=== PATIENT | male | born 1950 ===

== ENCOUNTER 2024-05-08 09:50 | Observation (INO) ==
--- NOTE | 2024-05-08 10:28 | ED Physician Documentation ---
History of Present Illness Stated complaint Stated Complaint: GLF, VOMIT, PX Chief complaint Chief Complaint: Trauma Hd/Nk History obtained from History obtained from: Patient and Family History of Present Illness Pain level max: 6 Pain level now: 4 Additonal information Additional information: Patient is a 73-year-old male who presents to the emergency department after a fall at home last night. He states that he fell down carpeted stairs onto hardwood. States left-sided rib pain, left-sided abdominal pain and left-sided head pain today. Has had nausea but no vomiting. Not on blood thinners. No altered mental status. Worse with movement, better with lying still. No hematuria noted. States that he has had fractured ribs in the past and this feels similar. No loss of consciousness. Not on anticoagulants. No seizure activity. No neck or back pain. No focal neurological deficits. Review of Systems Constitutional Denies: Fever or Chills Cardiovascular Denies: chest pain Gastrointestinal Denies: Coffee grounds in vomit, Melena or Blood in stool Meds/Allgy Home Medications Ambulatory Orders Medication Instructions Recorded Confirmed acyclovir 800 mg tablet 800 mg PO BID 05/08/24 05/08/24 amlodipine 10 mg tablet 10 mg PO ONCE 05/08/24 05/08/24 atorvastatin 40 mg tablet 40 mg PO ONCE 05/08/24 05/08/24 bupropion HCl 200 mg tablet,12 hr 200 mg PO BID 05/08/24 05/08/24 sustained-release irbesartan 300 mg tablet 300 mg PO ONCE 05/08/24 05/08/24 mirtazapine 45 mg tablet 45 mg PO HS 05/08/24 05/08/24 omeprazole 20 mg capsule,delayed 20 mg PO DAILY 05/08/24 05/08/24 release triamterene 37.5 1 tab PO ONCE 05/08/24 05/08/24 mg-hydrochlorothiazide 25 mg tablet Allergies Allergies Allergy/AdvReac Type Severity Reaction Status Date / Time No Known Drug Allergies Allergy Verified 05/08/24 10:06 [facility] Active Problems All Active Problems (Updated 05/08/24 @ 19:15 by Pina Monroe DO) Laceration of scalp without complication (Acute) Fall (on) (from) other stairs and steps, initial encounter (Acute) Hematoma of iliopsoas muscle (Acute) Closed rib fracture (Acute) Medical History Medical History (Updated 05/08/24 @ 19:15 by Pina Monroe DO) Hearing loss hearing aids [place]stroms macroglobulinemia s/p chemo Aortic stenosis High cholesterol Hypertension Surgical History Surgical History (Updated 05/08/24 @ 16:58 by Pina Monroe DO) History of transcatheter aortic valve replacement (TAVR) (~2020) Social History Social History (Updated 05/08/24 @ 11:40 by Magali Mata RN) Smoking Status: Never smoker Second hand tobacco smoke exposure: No Do you dip or chew tobacco?: No Do you vape?: No Relationship: Level: Independent Do you feel safe in your home environment?: Yes Suffered physical, verbal, emotional, or financial abuse?: No Exam Constitutional normal general appearance and no apparent distress HENMT normocephalic and TMs normal bilaterally Mild left forehead hematoma. No palpable skull fractures. No facial bone tenderness. Otherwise, atraumatic exam of the scalp and face. Eyes PERRL and EOMs intact bilaterally Neck/C-Spine visual inspection normal, trachea midline, cervical spine nontender and cervical full ROM noted No tenderness to palpation or percussion. No step-off or deformity. Chest inspection of chest normal Tendinous palpation over the left lower lateral ribs approximately eight through 10. No crepitus. No ecchymosis. Otherwise, benign exam of the chest wall. Respiratory breath sounds equal bilaterally, normal respiratory effort and clear to auscultation bilaterally Cardiovascular normal heart rate noted and regular rhythm noted Gastrointestinal abdomen normal to inspection, abdomen soft to palpation, nontender to palpation, nontender to percussion and nondistended Genitourinary no CVA tenderness Back/Pelvis spine normal to inspection, no thoracic spine tenderness and no lumbar spine tenderness No tenderness to palpation or percussion. 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, no focal motor deficit noted, no sensory deficits noted and GCS 15 Psychiatry mental status grossly normal and oriented x3 Skin skin color normal Results Vitals Vitals: Vital Signs - 24 hr 05/08/24 10:01 05/08/24 10:25 05/08/24 10:50 Temperature 36.4 C L Temperature Source Temporal Artery Scan Pulse Rate 73 77 85 Respiratory Rate 20 26 H 30 H Blood Pressure 147/84 H O2 Saturation 100 100 98 O2 Source Room air Room air Room air Pain Intensity 9 9 05/08/24 10:54 05/08/24 11:00 05/08/24 12:00 Temperature Temperature Source Pulse Rate 83 90 89 Respiratory Rate 23 18 18 Blood Pressure 144/81 H 133/87 H 144/84 H O2 Saturation 98 97 95 O2 Source Room air Room air Room air Pain Intensity 4 0 Oxygen O2 Source Room air Labs Labs: Laboratory Tests 05/08/24 10:15 WBC 11.9 H RBC 3.94 L Hgb 13.4 L Hct 38.4 L MCV 97.5 H MCH 34.0 H MCHC 34.9 RDW 13.0 Plt Count 187 MPV 10.7 Neut # (Auto) 11.0 H Lymph # (Auto) 0.3 L Wake # (Auto) 0.5 Eos # (Auto) 0.0 Baso # (Auto) 0.1 Absolute Nucleated RBC 0.00 Nucleated RBC % 0.0 PT 12.4 INR 1.1 APTT 24.7 L Sodium 133 L Potassium 4.0 Chloride 101 Carbon Dioxide 23 Anion Gap 9.0 BUN 24 H Creatinine 1.2 Estimated GFR (MDRD) 59 L Glucose 196 H Calcium 9.5 Total Bilirubin 0.5 AST 56 H ALT 50 Alkaline Phosphatase 83 Total Protein 7.5 Albumin 4.2 Globulin 3.3 Albumin/Globulin Ratio 1.3 Lipase 50 Ethyl Alcohol < 10.0 PD Medical Decision Making ED course Complexity details: reviewed results, re-evaluated patient, considered differential, d/w patient and d/w family ED course: 73 year old male status post. A fall down the stairs last night at approximately 9PM. Has a hematoma to the left forehead as well as pain to the left ribs and left abdomen. No acute findings on head CT, cervical spine CT. His chest CT shows rib fractures of the lateral ribs nine and ten. No pneumothorax or hemothorax. CT abdomen and pelvis do not show any acute traumatic abnormalities other than a possible iliopsoas hematoma. His hemoglobin and hematocrit are normal here. Vital signs are stable, not on blood thinners. Pain well controlled with a dose of Dilaudid, not hypoxic. Discussed the case with Doctor. Monroe, will place the patient on observation for pain control, serial hemoglobin and hematocrit, and incentive spirometry. Discharge Plan Discharge Patient Disposition: ED Place in Observation Condition: Stable Clinical Impression: Closed rib fracture Qualifiers: Encounter type: initial encounter Rib fracture type: multiple ribs Laterality: left Qualified Code(s): S22.42XA - Multiple fractures of ribs, left side, initial encounter for closed fracture Hematoma of iliopsoas muscle Qualifiers: Encounter type: initial encounter Laterality: left Qualified Code(s): S70.12XA - Contusion of left thigh, initial encounter Interventions: ED Admission Assessment Last Done: 05/08/24 13:53
[2024-05-08] MEDS ORDERED: iohexoL-300 100 ML VIAL ONE (10:30)
[2024-05-08] MEDS: HYDROmorphone 1 MG/ML SYRINGE IVP STA (10:30)
[2024-05-08 10:33] LABS: BASOPHILS # (AUTO) 0.1 10^3/uL (0.0-0.1); BASOPHILS % (AUTO) 0.4 %; HCT - HEMATOCRIT 38.4 % (42.0-52.0); HGB - HEMOGLOBIN 13.4 g/dL (14.0-18.0); LYMPHOCYTES # (AUTO) 0.3 10^3/uL (1.5-3.5); LYMPHOCYTES % (AUTO) 2.4 %; MEAN CORPUSCULAR HGB CONC 34.9 g/dL (32.0-36.0); MEAN CORPUSCULAR VOLUME 97.5 fL (80.0-94.0); MEAN PLATELET VOLUME 10.7 fL (7.4-11.4); MONOCYTES # (AUTO) 0.5 10^3/uL (0.0-1.0); MONOCYTES % (AUTO) 4.1 %; NEUTROPHILS % (AUTO) 92.7 %; PLT - PLATELET COUNT 187 10^3/uL (130-450); RED BLOOD COUNT 3.94 10^6/uL (4.70-6.10); WHITE BLOOD COUNT 11.9 x10^3/uL (4.8-10.8)
[2024-05-08] MEDS: ONDANSETRON 4 MG/2 ML VIAL IVP STA (10:33)
[2024-05-08 10:44] LABS: ALBUMIN 4.2 g/dL (3.2-5.5); ALBUMIN/GLOBULIN RATIO 1.3 (1.0-2.2); ALKALINE PHOSPHATASE 83 IU/L (42-121); ALT ALANINE AMINOTRANSFERASE 50 IU/L (10-60); AST ASPARTATE AMINOTRANSFERASE 56 IU/L (10-42); BILIRUBIN,TOTAL 0.5 mg/dL (0.2-1.0); BUN - BLOOD UREA NITROGEN 24 mg/dL (6-20); CALCIUM 9.5 mg/dL (8.5-10.3); CARBON DIOXIDE - CO2 23 mmol/L (21-32); CHLORIDE 101 mmol/L (101-111); CREATININE 1.2 mg/dL (0.6-1.3); ETOH - ETHANOL < 10.0 mg/dL; GFR - MDRD 59 (>89); GLUCOSE 196 mg/dL (74-104); LIPASE 50 U/L (11-82); PARTIAL THROMBOPLASTIN TIME 24.7 secs (24.9-33.3); SODIUM 133 mmol/L (135-145); TOTAL PROTEIN 7.5 g/dL (6.4-8.9)
[2024-05-08 10:48] LABS: INR 1.1 (0.8-1.2); PT - PROTHROMBIN TIME 12.4 secs (9.9-12.6)
[2024-05-08] MEDS: iohexoL-300 100 ML VIAL IVP ONE (11:00)
--- NOTE | 2024-05-08 11:10 | CT Report ---
PROCEDURE: CT Head WO INDICATIONS: Head trauma, mod-severe TECHNIQUE: Noncontrast 4.5 mm thick angled axial sections acquired from the foramen magnum to the vertex. For r adiation dose reduction, the following was used: automated exposure control, adjustment of mA and/or kV according to patient size. COMPARISON: None. FINDINGS: Image quality: Excellent. CSF spaces: Basal cisterns are patent. No extra-axial fluid collections. Ventricles are normal in size and shape. Brain: No midline shift. No intracranial masses or hemorrhage. Rosales-white matter interface is norm al. Skull and face: Calvarium and visualized facial bones are intact, without suspicious lesions. Sinuses: Visualized sinuses and mastoids are clear. IMPRESSION: No acute intracranial pathology. Reviewed by: Kiko Welch MD on 05/08/2024 11:09 AM PDT Approved by: Kiko Welch MD on 05/08/2024 11:09 AM PDT Station ID: [id number]
--- NOTE | 2024-05-08 11:10 | CT Report ---
PROCEDURE: CT Abdomen/Pelvis W INDICATIONS: Abdominal trauma, blunt, L sided, fall CONTRAST: 100ml omni 300 TECHNIQUE: After the administration of intravenous contrast, a CT scan of the abdomen and pelvis was performed. Images were recorded and evaluated at appropriate window settings. Reformats: coronal and sagittal. F or radiation dose reduction, the following was used: automated exposure control, adjustment of mA and /or kV according to patient size. COMPARISON: None. FINDINGS: Image quality: Diagnostic. Lower chest: Unremarkable. Liver: No solid mass. Gallbladder: Cholelithiasis without wall thickening. Biliary tree: No intrahepatic or extrahepatic dilation, accounting for age. Spleen: No splenomegaly. Pancreas: No pancreatic ductal dilation. Adrenals: No adrenal nodule. Kidneys and ureters: No hydronephrosis. No renal cystic lesion which requires follow up. No solid mas s. Stomach, bowel and peritoneum: No gastric or small bowel dilation. No abnormal wall thickening. No pa thologic free fluid. Diverticulosis without evidence of diverticulitis. Lymph nodes: No central or retroperitoneal adenopathy. Vessels: No infrarenal aortic aneurysm. Patent portal vein. PELVIS Reproductive organs: Unremarkable. Bladder: No abnormal wall thickening, accounting for underdistention. Pelvic lymph nodes: No pelvic adenopathy by size criteria. Bones: No aggressive osseous abnormality. Chronic compression deformity of the L3 vertebral body with 3 mm intervals. Chronic right L5 pars defect. Other: No significant ventral or inguinal hernia. There is mild fat stranding about the left iliopsoa s muscle. IMPRESSION: Mild fat stranding about the left iliopsoas muscle, likely a small hematoma. Consider trending hemato crit to exclude a slow bleed. No adjacent pelvic fracture. Reviewed by: Kiko Welch MD on 05/08/2024 11:09 AM PDT Approved by: Kiko Welch MD on 05/08/2024 11:09 AM PDT Station ID: [id number]
--- NOTE | 2024-05-08 11:30 | CT Report ---
PROCEDURE: CT Chest W INDICATIONS: Chest trauma, blunt, rib pain, vomiting CONTRAST: 100ml omni 300 TECHNIQUE: After the administration of intravenous contrast, a CT scan of the chest was performed. Images were recorded and evaluated at appropriate window settings. Reformats: axial MIP of the chest, coronal and sagittal. For radiation dose reduction, the following was used: automated exposure control, adjustme nt of mA and/or kV according to patient size. COMPARISON: None. FINDINGS: Image quality: Diagnostic. Chest wall and lower neck: No thyroid nodule which requires sonographic follow up. No breast mass. No axillary or supraclavicular adenopathy by size. Lungs and pleura: Scattered atelectasis in posterior lateral periphery of bilateral mid to lower lung colvin are seen. No consolidation. No pleural effusions. No pneumothorax. No suspicious pulmonary n odules which require follow up. Mediastinum: Heart size is normal. No pericardial effusion. Prosthetic aortic valve is seen. 3 vessel coronary artery atherosclerotic calcifications are seen. No aortic aneurysm or gross dissection. Angelica n pulmonary artery is normal in size. No mediastinal adenopathy by size criteria. Moderate size hiat al hernia. Bones: No aggressive osseous abnormality. No acute displaced rib fractures. No acute vertebral body c ompression fractures. Sternum is intact. Upper Abdomen: Hepatic steatosis is seen.. IMPRESSION: 1. No evidence of acute trauma to the chest. 2. No displaced rib fractures. No acute sternal fracture. No vertebral body compression fracture or s pondylolisthesis. 3. Chronic findings as above. Reviewed by: Migue Walsh MD on 05/08/2024 11:29 AM PDT Approved by: Migue Walsh MD on 05/08/2024 11:29 AM PDT Station ID: [id number]
--- NOTE | 2024-05-08 11:31 | CT Report ---
PROCEDURE: CT Cervical Spine WO INDICATIONS: Neck trauma, midline tenderness TECHNIQUE: Noncontrast 3 mm thick sections acquired from the skull base to the T4 level. Sagittal and coronal r eformats were then constructed. For radiation dose reduction, the following was used: automated exp osure control, adjustment of mA and/or kV according to patient size. COMPARISON: None. FINDINGS: Image quality: Excellent. Bones: No fractures or dislocations. Degenerative endplate changes, loss of disc height and bilatera l uncovertebral hypertrophic changes are noted throughout cervical spine. Visualized superior ribs a re intact. Soft tissues: Prevertebral soft tissues are normal in thickness. No paravertebral hematomas. No ap ical pneumothoraces. IMPRESSION: 1. No acute, displaced fracture or traumatic subluxation. 2. Mild to moderate degenerative disc disease throughout cervical spine. Reviewed by: Migue Walsh MD on 05/08/2024 11:29 AM PDT Approved by: Migue Walsh MD on 05/08/2024 11:29 AM PDT Station ID: [id number]
[2024-05-08] MEDS ORDERED: ONDANSETRON 4 MG/2 ML VIAL IVP PRN (13:45)
[2024-05-08] MEDS ORDERED: SODIUM CHLORIDE FLUSH 0.9% 10 ML SYRINGE IVP PRN (13:45)
[2024-05-08] MEDS ORDERED: HYDROmorphone 0.5 MG/0.5 ML SYRINGE IVP PRN (13:45)
[2024-05-08] MEDS: LACTATED RINGERS 1,000 ML IV SCH (14:27)
[2024-05-08] MEDS: ACETAMINOPHEN 325 MG TABLET PO SCH (14:27)
--- NOTE | 2024-05-08 16:02 | PHARMACY PROGRESS NOTE ---
Best Possible Medication History Admit Date and Time: 05/08/24 [id number] Home Medications Medication Instructions Recorded Confirmed Type acyclovir 800 mg tablet 800 mg PO BID 05/08/24 05/08/24 History amlodipine 10 mg tablet 10 mg PO ONCE 05/08/24 05/08/24 History atorvastatin 40 mg tablet 40 mg PO ONCE 05/08/24 05/08/24 History bupropion HCl 200 mg tablet,12 hr 200 mg PO BID 05/08/24 05/08/24 History sustained-release irbesartan 300 mg tablet 300 mg PO ONCE 05/08/24 05/08/24 History mirtazapine 45 mg tablet 45 mg PO HS 05/08/24 05/08/24 History omeprazole 20 mg capsule,delayed 20 mg PO DAILY 05/08/24 05/08/24 History release triamterene 37.5 1 tab PO ONCE 05/08/24 05/08/24 History mg-hydrochlorothiazide 25 mg tablet Processed by: Pharmacy Medications reviewed in ED?: No Medication History completed: Yes Patient Interview: Completed Secondary Source(s): Written medication list and Insurance records [facility] Statement[facility]. As the person ultimately responsible for medication therapy, providers are able to order a medication from an existing home medication list in [facility] via the "Reconcile Routine" prior to Confirmation of that medication by manufacturing support engineer. Such practice is discouraged except when the physician, in their clinical judgment, deems that a medical need exists for a medication without regard to previous use.
[2024-05-08 16:10] LABS: BILIRUBIN,URINE NEGATIVE (NEGATIVE); CLARITY,URINE CLEAR (CLEAR); GLUCOSE, URINE (UA) NEGATIVE (NEGATIVE); KETONES,URINE (UA) NEGATIVE (NEGATIVE); LEUKOCYTE ESTERASE, URINE NEGATIVE (NEGATIVE); NITRITE,URINE NEGATIVE (NEGATIVE); OCCULT BLOOD,URINE NEGATIVE (NEGATIVE); PROTEIN,URINE NEGATIVE (NEGATIVE); UROBILINOGEN,URINE 0.2 (NORMAL) E.U./dL (NORMAL)
[2024-05-08 16:28] LABS: COCAINE SCREEN URINE NEGATIVE (NEGATIVE); METHAMPHETAMINES SCREEN, URINE NEGATIVE (NEGATIVE); THC CANNABINOID SCREEN, URINE NEGATIVE (NEGATIVE)
[2024-05-08 16:29] LABS: AMPHETAMINE SCREEN,URINE NEGATIVE (NEGATIVE); BARBITURATE SCREEN,UR NEGATIVE (NEGATIVE); BENZODIAZEPINES SCREEN, URINE NEGATIVE (NEGATIVE); BUPRENORPHINE SCREEN, URINE NEGATIVE (NEGATIVE); METHADONE SCREEN, URINE NEGATIVE (NEGATIVE); OPIATE SCREEN, URINE POSITIVE (NEGATIVE); OXYCODONE SCREEN, URINE NEGATIVE (NEGATIVE); TRICYCLIC ANTIDEPRESSANT,URINE NEGATIVE (NEGATIVE)
[2024-05-08] MEDS: oxyCODONE 5 MG TABLET PO PRN (16:30)
[2024-05-08] MEDS: SODIUM CHLORIDE FLUSH 0.9% 10 ML SYRINGE IVP SCH (16:31)
--- NOTE | 2024-05-08 17:10 | HISTORY & PHYSICAL EXAMINATION ---
History of Present Illness History of Present Illness HPI Comment/Other: 73M with mechanical fall on home stairs yesterday, did strike head on left hindu but without LOC. Remained home overnight with repeated nausea and dry heaves, presented to the ED today. Evaluated in ED with cook scan and found to have L 9&10 rib fx, as well as possible small left iliopsoas hematoma. Given zofran in the ED and his nausea has resolved without recurrence. Admitted to the floor this afternoon, is pulling >2000 on IS without need for O2. His pain is 6/10 and well controlled with medications. He denies abdominal pain or bloating. Pain is focused around left lower ribs. Denies headache or vision changes. Meds/Allgy Home Medications Ambulatory Orders Medication Instructions Recorded Confirmed acyclovir 800 mg tablet 800 mg PO BID 05/08/24 05/08/24 amlodipine 10 mg tablet 10 mg PO ONCE 05/08/24 05/08/24 atorvastatin 40 mg tablet 40 mg PO ONCE 05/08/24 05/08/24 bupropion HCl 200 mg tablet,12 hr 200 mg PO BID 05/08/24 05/08/24 sustained-release irbesartan 300 mg tablet 300 mg PO ONCE 05/08/24 05/08/24 mirtazapine 45 mg tablet 45 mg PO HS 05/08/24 05/08/24 omeprazole 20 mg capsule,delayed 20 mg PO DAILY 05/08/24 05/08/24 release triamterene 37.5 1 tab PO ONCE 05/08/24 05/08/24 mg-hydrochlorothiazide 25 mg tablet Allergies Allergies Allergy/AdvReac Type Severity Reaction Status Date / Time No Known Drug Allergies Allergy Verified 05/08/24 10:06 PFSH Active Problems All Active Problems (Updated 05/08/24 @ 19:15 by Pina Monroe DO) Laceration of scalp without complication (Acute) Fall (on) (from) other stairs and steps, initial encounter (Acute) Hematoma of iliopsoas muscle (Acute) Closed rib fracture (Acute) Medical History Medical History (Updated 05/08/24 @ 19:15 by Pina Monroe DO) Hearing loss hearing aids Waldenstroms macroglobulinemia s/p chemo Aortic stenosis High cholesterol Hypertension Surgical History Surgical History (Updated 05/08/24 @ 16:58 by Pina Monroe DO) History of transcatheter aortic valve replacement (TAVR) (~2020) Social History Social History (Updated 05/08/24 @ 11:40 by Magali Mata RN) Smoking Status: Never smoker Second hand tobacco smoke exposure: No Do you dip or chew tobacco?: No Do you vape?: No Relationship: Level: Independent Do you feel safe in your home environment?: Yes Suffered physical, verbal, emotional, or financial abuse?: No POLST Patient has POLST: No Review of Systems Status of ROS: 10 or more systems reviewed and unremarkable except as noted in history and below Exam Constitutional normal general appearance and no apparent distress HENMT superficial laceration of epidermis at left hindu without bleeding, not full thickness does not require closure Eyes PERRL, EOMs intact bilaterally, conjunctivae normal and normal visual colvin by confrontation Neck/C-Spine visual inspection normal, trachea midline and cervical full ROM noted Lymph no lymphadenopathy noted Chest palpation of chest abnormal (ttp along left lateral lower ribs) Respiratory breath sounds equal bilaterally and normal respiratory effort IS 2000 Cardiovascular normal heart rate noted and regular rhythm noted Gastrointestinal abdomen normal to inspection, abdomen soft to palpation and nondistended Back/Pelvis spine normal to inspection Extremities normal to inspection, normal to palpation, no tenderness, full ROM and no deformity Neurology no movement abnormality noted, no focal motor deficit noted, no sensory deficits noted, speech normal, coordination normal and GCS 15 Psychiatry mental status grossly normal and oriented x3 Skin skin color normal Conclusion/Plan Problem List (1) Fall (on) (from) other stairs and steps, initial encounter: (2) Hematoma of iliopsoas muscle: Qualifiers: Encounter type: initial encounter Laterality: left Qualified Code(s): S70.12XA - Contusion of left thigh, initial encounter (3) Closed rib fracture: Qualifiers: Encounter type: initial encounter Laterality: left Rib fracture type: multiple ribs Qualified Code(s): S22.42XA - Multiple fractures of ribs, left side, initial encounter for closed fracture (4) Laceration of scalp without complication: Plan 73yoM s/p mechanical fall at home with head strike but no LOC, presented to ED 12hrs later. Found to have . #fall - no history of falls requiring ED/hospital care - ambulates without assistive device - no syncope - SW consult prior to discharge #superficial left hindu laceration - not full thickness, no bleeding - does not require closure #left rib fx #9&10 - multimodal pain control with tylenol, motrin, lidocaine patch, oxycodone - respiratory therapy - is pulling 1999 on IS without O2 #possible left iliopsoas hematoma - trend hgb/monitor abdominal exam - thus far stable Started on clears/IVF, advanced to regular diet/IVF stopped after evening exam Home meds SCDs Dispo: anticipate DC home tomorrow Pina Monroe DO, FACS General Surgeon, [facility] Lab Results 05/08/24 17:37 05/08/24 10:15 Diagnostic Imaging Results Diagnostic Imaging Results Comments: PROCEDURE: CT Head WO INDICATIONS: Head trauma, mod-severe TECHNIQUE: Noncontrast 4.5 mm thick angled axial sections acquired from the foramen magnum to the vertex. For radiation dose reduction, the following was used: automated exposure control, adjustment of mA and/or kV according to patient size. COMPARISON: None. FINDINGS: Image quality: Excellent. CSF spaces: Basal cisterns are patent. No extra-axial fluid collections. Ventricles are normal in size and shape. Brain: No midline shift. No intracranial masses or hemorrhage. Rosales-white matter interface is normal. Skull and face: Calvarium and visualized facial bones are intact, without suspicious lesions. Sinuses: Visualized sinuses and mastoids are clear. IMPRESSION: No acute intracranial pathology. Reviewed by: Kiko Welch MD on 05/08/2024 11:09 AM PDT PROCEDURE: CT Cervical Spine WO INDICATIONS: Neck trauma, midline tenderness TECHNIQUE: Noncontrast 3 mm thick sections acquired from the skull base to the T4 level. Sagittal and coronal reformats were then constructed. For radiation dose reduction, the following was used: automated exposure control, adjustment of mA and/or kV according to patient size. COMPARISON: None. FINDINGS: Image quality: Excellent. Bones: No fractures or dislocations. Degenerative endplate changes, loss of disc height and bilateral uncovertebral hypertrophic changes are noted throughout cervical spine. Visualized superior ribs are intact. Soft tissues: Prevertebral soft tissues are normal in thickness. No paravertebral hematomas. No apical pneumothoraces. IMPRESSION: 1. No acute, displaced fracture or traumatic subluxation. 2. Mild to moderate degenerative disc disease throughout cervical spine. EXAM: [id number] CT/CHTW ([id number]) ADDENDUM ORIGINAL REPORT PROCEDURE: CT Chest W INDICATIONS: Chest trauma, blunt, rib pain, vomiting CONTRAST: 100ml omni 300 TECHNIQUE: After the administration of intravenous contrast, a CT scan of the chest was performed. Images were recorded and evaluated at appropriate window settings. Reformats: axial MIP of the chest, coronal and sagittal. For radiation dose reduction, the following was used: automated exposure control, adjustment of mA and/or kV according to patient size. COMPARISON: None. FINDINGS: Image quality: Diagnostic. Chest wall and lower neck: No thyroid nodule which requires sonographic follow up. No breast mass. No axillary or supraclavicular adenopathy by size. Lungs and pleura: Scattered atelectasis in posterior lateral periphery of bilateral mid to lower lung colvin are seen. No consolidation. No pleural effusions. No pneumothorax. No suspicious pulmonary nodules which require follow up. Mediastinum: Heart size is normal. No pericardial effusion. Prosthetic aortic valve is seen. 3 vessel coronary artery atherosclerotic calcifications are seen. No aortic aneurysm or gross dissection. Main pulmonary artery is normal in size. No mediastinal adenopathy by size criteria. Moderate size hiatal hernia. Bones: No aggressive osseous abnormality. No acute displaced rib fractures. No acute vertebral body compression fractures. Sternum is intact. Upper Abdomen: Hepatic steatosis is seen.. IMPRESSION: 1. No evidence of acute trauma to the chest. 2. No displaced rib fractures. No acute sternal fracture. No vertebral body compression fracture or spondylolisthesis. 3. Chronic findings as above. Reviewed by: Migue Walsh MD on 05/08/2024 11:29 AM PDT Approved by: Migue Walsh MD on 05/08/2024 11:29 AM PDT ADDENDUM #1 There are slightly displaced fractures involving left lateral ninth and 10th rib fractures and . Reviewed by: Migue Walsh MD on 05/08/2024 11:46 AM PDT Approved by: Migue Walsh MD on 05/08/2024 11:46 AM PDT Station ID: [id number] Addendum Furniture Decals Inspector: GRACIE Addendum Reading Radiologist:Migue Walsh MD Addendum Releasing Radiologist:Migue Walsh MD Addendum Released Date Time:05/08/24 1146 PROCEDURE: CT Abdomen/Pelvis W INDICATIONS: Abdominal trauma, blunt, L sided, fall CONTRAST: 100ml omni 300 TECHNIQUE: After the administration of intravenous contrast, a CT scan of the abdomen and pelvis was performed. Images were recorded and evaluated at appropriate window settings. Reformats: coronal and sagittal. For radiation dose reduction, the following was used: automated exposure control, adjustment of mA and/or kV according to patient size. COMPARISON: None. FINDINGS: Image quality: Diagnostic. Lower chest: Unremarkable. Liver: No solid mass. Gallbladder: Cholelithiasis without wall thickening. Biliary tree: No intrahepatic or extrahepatic dilation, accounting for age. Spleen: No splenomegaly. Pancreas: No pancreatic ductal dilation. Adrenals: No adrenal nodule. Kidneys and ureters: No hydronephrosis. No renal cystic lesion which requires follow up. No solid mass. Stomach, bowel and peritoneum: No gastric or small bowel dilation. No abnormal wall thickening. No pathologic free fluid. Diverticulosis without evidence of diverticulitis. Lymph nodes: No central or retroperitoneal adenopathy. Vessels: No infrarenal aortic aneurysm. Patent portal vein. PELVIS Reproductive organs: Unremarkable. Bladder: No abnormal wall thickening, accounting for underdistention. Pelvic lymph nodes: No pelvic adenopathy by size criteria. Bones: No aggressive osseous abnormality. Chronic compression deformity of the L3 vertebral body with 3 mm intervals. Chronic right L5 pars defect. Other: No significant ventral or inguinal hernia. There is mild fat stranding about the left iliopsoas muscle. IMPRESSION: Mild fat stranding about the left iliopsoas muscle, likely a small hematoma. Consider trending hematocrit to exclude a slow bleed. No adjacent pelvic fracture. Reviewed by: Kiko Welch MD on 05/08/2024 11:09 AM PDT
[2024-05-08 17:47] LABS: BASOPHILS % (AUTO) 0.3 %; HGB - HEMOGLOBIN 12.5 g/dL (14.0-18.0); LYMPHOCYTES # (AUTO) 0.4 10^3/uL (1.5-3.5); LYMPHOCYTES % (AUTO) 3.8 %; MEAN CORPUSCULAR HEMOGLOBIN 34.2 pg (27.0-31.0); MEAN CORPUSCULAR HGB CONC 34.7 g/dL (32.0-36.0); MEAN CORPUSCULAR VOLUME 98.6 fL (80.0-94.0); MEAN PLATELET VOLUME 10.1 fL (7.4-11.4); MONOCYTES # (AUTO) 0.9 10^3/uL (0.0-1.0); MONOCYTES % (AUTO) 8.1 %; NEUTROPHILS # (AUTO) 9.6 10^3/uL (1.5-6.6); NEUTROPHILS % (AUTO) 87.3 %; PLT - PLATELET COUNT 162 10^3/uL (130-450); RED BLOOD COUNT 3.65 10^6/uL (4.70-6.10); RED CELL DISTRIBUTION WIDTH 13.1 % (12.0-15.0)
[2024-05-08 17:54] LABS: INR 1.1 (0.8-1.2); PT - PROTHROMBIN TIME 12.6 secs (9.9-12.6)
[2024-05-08] MEDS: IBUPROFEN 600 MG TABLET PO SCH (17:56)
[2024-05-08] MEDS: CALCIUM CARBONATE CHEW 500 MG TABLET PO SCH (20:40)
[2024-05-08] MEDS: ACYCLOVIR 200 MG CAPSULE PO SCH (20:40)
[2024-05-08] MEDS: MIRTAZAPINE 15 MG TABLET PO SCH (20:40)
[2024-05-08] MEDS: buPROPion SR 100 MG TABLET PO SCH (20:40)
[2024-05-08] MEDS: LOSARTAN 50 MG TABLET PO SCH (20:41)
[2024-05-08] MEDS: amLODIPine 5 MG TABLET PO SCH (20:41)
[2024-05-08] MEDS: ATORVASTATIN 40 MG TABLET PO SCH (20:41)
[2024-05-09] MEDS: PANTOPRAZOLE 40 MG TABLET PO SCH (06:29)
[2024-05-09 06:33] LABS: CALCIUM 9.2 mg/dL (8.5-10.3); CREATININE 1.2 mg/dL (0.6-1.3); POTASSIUM 3.1 mmol/L (3.5-4.5)
[2024-05-09 07:48] LABS: HCT - HEMATOCRIT 36.5 % (42.0-52.0); HGB - HEMOGLOBIN 12.7 g/dL (14.0-18.0)
[2024-05-09] MEDS: LIDOCAINE PATCH 4% TOP SCH (08:05)
[2024-05-09] MEDS ORDERED: NON FORMULARY MED (Omeprazole 20 mg capsule,delayed release(DR/EC)) PO SCH (09:00)
[2024-05-09 12:35] VITALS: BP 137/89; TEMP 98.2; O2SAT 97
--- NOTE | 2024-05-09 15:45 | Discharge Summary ---
"Discharge Summary Admit Date: 05/08/24 Discharge Date: 05/09/24 Discharging Provider: clyde meeks Code Status: Attempt Resuscitation Discharge Facility Name: [facility] DIAGNOSES Admission Diagnoses: fall with couple rib fractures and small lip laceration much improved 05/10/2024. ambulating safely and taking good normal breaths Discharge Diagnoses with Status of Each Condition: much improved after fall with rib fractures. home in good condition HPI History of Present Illness: as above. fall with rib fractures. no other significant injury. CONSULTS | PROCEDURES Procedures: pain management and observation, respiratory care HOSPITAL COURSE Hospital Course: much improved. ambulating safely and able to take good normal breaths 05/09/2024 ALLERGIES Allergies Allergy/AdvReac Type Severity Reaction Status Date / Time No Known Drug Allergies Allergy Verified 05/08/24 10:06 MEDICATIONS Ambulatory Orders Medication Instructions Recorded Confirmed acyclovir 800 mg tablet 800 mg PO BID 05/08/24 05/08/24 amlodipine 10 mg tablet 10 mg PO ONCE 05/08/24 05/08/24 atorvastatin 40 mg tablet 40 mg PO ONCE 05/08/24 05/08/24 bupropion HCl 200 mg tablet,12 hr 200 mg PO BID 05/08/24 05/08/24 sustained-release irbesartan 300 mg tablet 300 mg PO ONCE 05/08/24 05/08/24 mirtazapine 45 mg tablet 45 mg PO HS 05/08/24 05/08/24 omeprazole 20 mg capsule,delayed 20 mg PO DAILY 05/08/24 05/08/24 release triamterene 37.5 1 tab PO ONCE 05/08/24 05/08/24 mg-hydrochlorothiazide 25 mg tablet oxycodone-acetaminophen 5 mg-325 1 tab PO Q4-6H PRN Pain #25 tabs 05/09/24 mg tablet PHYSICAL EXAM AT DISCHARGE General Appearance: positive No acute distress and Alert Eyes Bilateral: positive PERRL, EOMI and No scleral icterus Neck: positive Trachea midline Respiratory: positive No respiratory distress Abdomen: positive No distention Neurologic/Psychiatric: positive Oriented x3 LABS 05/09/24 05:31 05/09/24 05:39 FOLLOW UP Follow Up: surgery office as needed. [phone] Discharge Plan Discharge Patient Disposition: Home, Self Care Condition: Stable Medically Cleared Date:: 05/09/24 Medically Cleared Comments:: much improved. doing very well Prescriptions: New oxycodone-acetaminophen 5-325 mg tablet 1 tab PO Q4-6H PRN (Reason: Pain) Qty: 25 0RF Continued atorvastatin 40 mg tablet 40 mg PO ONCE acyclovir 800 mg tablet 800 mg PO BID amlodipine 10 mg tablet 10 mg PO ONCE triamterene-hydrochlorothiazid 37.5-25 mg tablet 1 tab PO ONCE mirtazapine 45 mg tablet 45 mg PO HS irbesartan 300 mg tablet 300 mg PO ONCE bupropion HCl 200 mg tablet sustained-release 12 hr 200 mg PO BID omeprazole 20 mg capsule,delayed release(DR/EC) 20 mg PO DAILY Diet: Regular Health Concerns: recent fail with rib fractures Care Plan Goals: activities as tolerated Assessment: much improved. Plan of Treatment: home. activities as tolerated. follow up surgery office as needed. [phone] Print Language: [place] Patient Instructions: Fx Rib Stand Alone Forms: PCP List Follow-up Care: Faustino Meeks MD [Provider Admit Priv/Credential] - (follow up as needed)"
== END 2024-05-09 16:02 | disposition home or self-care (01) ==
LOC: MS3 09:50 → ED 09:50 → MS3 13:54 → MS2 17:41
PROVIDERS: ADMIT Surgery; ATTEND Surgery
DX: Y92.009 Unspecified place in unspecified non-institutional (private) residence as the place of occurrence of the external cause; S70.12XA Contusion of left thigh, initial encounter; R52 Pain, unspecified; S01.511A Laceration without foreign body of lip, initial encounter; W10.8XXA Fall (on) (from) other stairs and steps, initial encounter; S01.81XA Laceration without foreign body of other part of head, initial encounter; S22.42XA Multiple fractures of ribs, left side, initial encounter for closed fracture